=== PATIENT | female | born 1960 | race Two or more races ===

== ENCOUNTER 2023-06-22 10:27 | Emergency (ER) | payer MEDICAID, OTHER ==
[~2023-06-22] VITALS: Ht 162.6 cm; Wt 62.6 kg
[2023-06-22 11:17] LABS: Urine Bacteria NONE SEEN /hpf (None Seen); Urine Blood 3+ /uL (Negative); Urine Clarity CLOUDY (Clear); Urine Color Red (Yellow); Urine Protein, UAD 2+ (Negative); Urine Urobilinogen Normal (Negative); Urine WBC 971 /hpf (0 - 5); Urine WBC Clumps PRESENT /hpf (None Seen)
[2023-06-22 11:50] LABS: Urine Specific Gravity 1.015 (1.001-1.035)
[2023-06-22] MEDS ORDERED: CIPR-173 PO (11:58)
[2023-06-22] MEDS: CIPROFLOXACIN HCL 500 MG TAB PO ONE (13:48)
[2023-06-22 13:49] VITALS: PULSE 87; RESP 16; O2SAT 98
== END 2023-06-22 13:53 | disposition home or self-care (01) ==
LOC: ER 10:27
DX: N39.0 Urinary tract infection, site not specified (principal)
CPT/HCPCS: 81001